=== PATIENT | male | born 1950 | race Caucasian/White ===

== ENCOUNTER 2018-01-01 10:41 | Day surgery (SDC) | payer MEDICARE, MEDICAID ==
[~2018-01-01] VITALS: Ht 185.4 cm; Wt 64.9 kg
[~2018-01-01 10:41] MED LIST: ALBU6.7H INH; ALLO100T PO; BECL8.7A7 INH; BENZ-16 PO; ENTE0.5T4 PO; ESOM20CA PO; FURO-150 PO; INSU100V36 SQ; LANTUS SQ; ONDA8TAB13 PO; PER5325T PO; POTA8TAB8 PO; PROC10TA10 PO; SERT25TA PO; SULF1TAB49 PO; VALA500T37 PO; [UNRECOGNIZED DRUG - CODE] PO
[2018-01-01] MEDS ORDERED: normal saline 1000ml 1,000 ML IV SCH (11:05)
[2018-01-01] MEDS ORDERED: MIDAZolam 1mg/ml 10ml vial IV ONE (11:10)
[2018-01-01] MEDS ORDERED: fentaNYL/PF 50MCG/1 ML 2ML syringe IV ONE (11:10)
[2018-01-01] MEDS ORDERED: heparin sodium, porcine/PF 100unit/ml 5ML syringe ICATH ONE (11:35)
[2018-01-01] MEDS ORDERED: LIDOcaine 1% 30ml preserv. free vial SQ STA (11:39)
[2018-01-01 11:42] VITALS: BP 101/62
[2018-01-01] MEDS ORDERED: INSU300I SQ (12:48)
[2018-01-01 13:10] LABS: BASOPHILS % (AUTO) 0.5 % (0-1); EOSINOPHILS # (AUTO) 0.1 X10'3 (0-0.9); LYMPHOCYTES # (AUTO) 0.7 X10'3 (1.1-4.8); MEAN CORPUSCULAR HEMOGLOBIN 24.9 PG (27.0-31.0); MEAN CORPUSCULAR HGB CONC 32.3 % (33.0-36.5); MEAN CORPUSCULAR VOLUME 76.9 FL (78-98); MEAN PLATELET VOLUME 7.1 FL (7.4-10.4); MONOCYTES # (AUTO) 0.7 X10'3 (0-0.9); MONOCYTES % (AUTO) 11.4 % (2-12); NEUTROPHILS # (AUTO) 4.9 X10'3 (1.8-7.7); NEUTROPHILS % (AUTO) 76.1 % (42-75); PLATELET COUNT 193 X10'3 (140-440); RED BLOOD COUNT 2.75 X10'6 (4.70-6.10); RED CELL DISTRIBUTION WIDTH 20.7 % (11.5-14.5); WHITE BLOOD COUNT 6.5 X10'3 (4.5-11.0)
[2018-01-01 13:14] LABS: HEMOGLOBIN 6.8 g/dl (14.0-17.9)
[2018-01-01 13:15] LABS: HEMATOCRIT 21.1 % (42.0-52.0)
[2018-01-01 13:21] LABS: INR 1.3 INR; PROTHROMBIN TIME 13.3 SECONDS (9.0-12.0)
[2018-01-01] MEDS ORDERED: heparin sodium, porcine/PF 100unit/ml 5ML syringe IV ONE (14:10)
[2018-01-01 14:30] VITALS: BP 100/63
== END 2018-01-01 14:55 | disposition home or self-care (01) ==
LOC: SSTAY O 10:41
PROVIDERS: ATTEND Radiology Vascular & Interventional Radiology
DX: B18.1 Chronic viral hepatitis B without delta-agent (principal); Z53.8 Procedure and treatment not carried out for other reasons
CPT/HCPCS: 36415; 85025; 85610; J1642; J3490; J7030; A6257